=== PATIENT | female | born 1945 | race Caucasian/White ===

== ENCOUNTER 2016-09-05 10:24 | Emergency (ER) | payer OTHER, MEDICARE ==
[~2016-09-05 10:24] MED LIST: AMPH25CA3 PO
[2016-09-05 10:29] VITALS: BP 160/96; PULSE 90; RESP 20; O2SAT 98
--- NOTE | 2016-09-05 10:35 | ED.REPORT ---
HPI-General Illness Date of Service Sep 05, 2016 ED Provider: Dr. Bustillos Pt is a 71 y/o female w/ a hx of bronchitis, PE presenting to the ED c/o brown productive cough for 8 days. Pt c/o associated nasal congestion, rhinorrhea, mild SOB. Pt denies fever, chills, N/V/D. Her cough has been causing her discomfort throughout the day and has caused her decreased sleep. She has never smoked. There is no history of respiratory disease. She denies immobilization, lower extremity swelling or pain. She has a history of PE 3 years ago which was caused by immobilization of her leg secondary to injury. This presentation is not similar to her prior presentation of PE. Nursing Notes Stated Complaint: COLD SYMPTOMS Chief Complaint: FLU/Cold Symptoms Nursing Notes Reviewed: Yes Allergies: Coded Allergies: No Known Allergies (Verified Allergy, Unknown, 09/05/16) Scheduled Mixed Amphet-Expunged Drug, Do Not Renew! (Mixed Amphet-Expunged Drug, Do Not Renew!) 25 Mg Cap.sr.24h 30 MG PO DAILY Scheduled PRN Benzonatate (Tessalon Perle) 100 Mg Capsule 100 MG PO TID PRN PRN For Cough Guaifenesin/Codeine Phosphate (Cheratussin AC Syrup) 118 Ml Liquid 5 ML PO BID PRN PRN For Cough General Time Seen by MD: 10:35 Chief Complaint Cough Hx Obtained From: Patient Arrived By: Walk-in Sudden in Onset?: No Onset Occurred: More than a week ago... Symptom Duration: Since onset Severity: Current: No pain currently Severity: Maximum: No pain Similar Sx Previous: No Past Medical History Past Medical History Notes: history of kidney stones Past Medical History Bronchitis PE 3 years ago after an injury which caused leg immobilization Past Surgical History shoulder surgery Smoking History Former Smoker Social History Alcohol Use: "Social" Other Social History: Good social support Ambulatory Status Independent Review of Systems Full Review of Systems Constitutional: Denies: Chills, Fever Respiratory: Reports: Prod cough, brown, Shortness of breath GI: Denies: Diarrhea, Nausea, Vomiting Complete sys rev & neg: except as marked. Physical Exam Vital Signs Vital Signs Date Time Temp Pulse Resp B/P Pulse Ox O2 Delivery O2 Flow Rate FiO2 09/05/16 11:51 36.2 85 20 166/95 95 Room Air 09/05/16 10:29 36 90 20 160/96 98 Room Air Initial VS: Reviewed, Vital signs abnormal Head / Eyes: Atraumatic, Normocephalic, PERRL ENT: Mucous membranes moist, Conjunctiva normal, No scleral icterus Neck: Supple, Full range of motion Cardiovascular: Regular rate & rhythm, Heart sounds normal, Intact distal pulses Abdomen / GI: Soft, Non-tender Extremities: Vascular intact, Neuro intact, No swelling, No tenderness Skin: Warm, Dry, No cyanosis Neurologic: Alert, Oriented, Nonfocal Psychiatric: Mood/affect normal, Behavior normal, Normal thought content Respiratory / Chest: Atraumatic, Breath sounds = bilat, No respiratory distress , No wheezing, No retractions, No stridor, No chest tenderness, No chest wall deformity, No crepitus Slilghtly coarse throughout Good air movement Interpretation & Diagnostics X-Ray Chest Interpretation Chest Xray Interpretation: IMPRESSION: No acute cardiopulmonary disease process. Dictated by: Lisa Mccullough MD, PhD on 09/05/2016 at 11:16 Approved by: Lisa Mccullough MD, PhD on 09/05/2016 at 11:17 View: Portable, AP & lat Interpretation / Wet Read by: Interpret - Radiologist Re-Eval/Medical Decision Med Decision/Clinical Course Pt is a 71 y/o female w/ a hx of bronchitis, PE presenting to the ED c/o brown productive cough for 8 days. Pt c/o associated nasal congestion, rhinorrhea, mild SOB. Here in the emergency department the patient is afebrile w/ stable vital signs and in no apparent distress. CXR: Obtained, reviewed and interpreted by myself shows no evidence of acute infiltrates, effusions or pneumothorax. Cardiac and mediastinal silhouette normal. No bony or soft tissue abnormalities. History and examination overwhelmingly convincing for bronchitis in the setting of recent upper respiratory infection and now chronic cough. No evidence of bacterial pneumonia. Presentation on convincing for pulmonary embolus and causes her history and examination. No signs or symptoms to suggest acute coronary syndrome. I do not feel that further workup is indicated. Patient was treated with albuterol inhaler/spacer and seemed to respond somewhat to proper dilators. She has been prescribed Tessalon for cough and codeine/guaifenasin cough syrup for use at night as needed. She will follow up with her primary care physician in the next couple of days. Follow- up and return precautions were reviewed in detail and the patient verbalized understanding and agreeable with the plan. She was discharged in good condition. Time of Eval: 11:24 Re-Evaluation/Progress Note: Pt rechecked. Informed pt of plan for treatment. Pt understands and agrees with plan for treatment. F/U instructions and RTER warnings given. All questions addressed. Counseled Regarding: Diagnosis, Need for follow-up, When/why to return to ED Discharge & Departure Primary Impression: Bronchitis Additional Impressions: Cough Shortness of breath Disposition: Home Discharge Condition All VS Reviewed: Yes Condition: Stable Patient Instructions: Acute Bronchitis (ED) Additional Instructions: Thank you for seeking care at the emergency room. It is difficult for us to make definitive diagnoses in the ED but we believe that you are experiencing bronchitis. Our primary goal today in the ED was to evaluate you for any life-threatening conditions. Your evaluation was reassuring. Your chest x-ray and Influenza screen was negative. You will be discharged with a prescription for Tessalon Perles to be taken during the day for cough. Codeine guaifenesin for use at night. Albuterol inhaler for use if you feel short of breath. You should follow-up with your primary doctor in the next week. You should return to the ED immediately if you develop high fevers, vomiting, worsening shortness of breath, lightheadedness, weakness or any other concerning signs or symptoms. Thank you for letting us partake in your care today. Referrals: Skip Rosado MD (PCP) Scribe Attestation Portions of this note were transcribed by Jono Rudd. I, Dr. Bustillos personally performed the history, physical exam and medical decision-making; I reviewed and confirmed the accuracy of the information in the transcribed note. Signed by Manish Denny, 09/05/16 [id number] copies to: Skip Rosado MD, Beck O MD Sep 05, 2016 10:35 JONO RUDD Sep 05, 2016 11:29
--- NOTE | 2016-09-05 11:18 | DRSVH ---
PROCEDURE: X-RAY CHEST, TWO VIEWS ([id number]) INDICATIONS: cough TECHNIQUE: 2 views of the chest were acquired. COMPARISON: [facility], CR, XR CHEST 2VW, 11/11/2015, 21:22. FINDINGS: Surgical changes and devices: None. Lungs and pleura: No pleural effusions or pneumothorax. Lungs are clear. Mediastinum: Mediastinal contours are normal. Heart size is normal. Bones and chest wall: No suspicious bony abnormalities. Soft tissues appear unremarkable. IMPRESSION: No acute cardiopulmonary disease process. Dictated by: Lisa Mccullough MD, PhD on 09/05/2016 at 11:16 Approved by: Lisa Mccullough MD, PhD on 09/05/2016 at 11:17
[2016-09-05] MEDS ORDERED: GUAI118L13 PO (11:28)
[2016-09-05] MEDS ORDERED: BENZ-12 PO (11:28)
[2016-09-05] MEDS ORDERED: Albuterol HFA 60 Puff 8 Gm Inhaler INHALATION PRN (11:30)
[2016-09-05 11:51] VITALS: BP 166/95; PULSE 85; RESP 20; O2SAT 95
== END 2016-09-05 11:51 | disposition home or self-care (01) ==
LOC: SED 10:24
DX: J40 Bronchitis, not specified as acute or chronic (principal); R05 Cough; R06.02 Shortness of breath; Z87.891 Personal history of nicotine dependence

== ENCOUNTER 2016-11-15 18:33 | Emergency (ER) | payer OTHER, MEDICARE ==
[~2016-11-15] VITALS: Ht 152.4 cm; Wt 69.5 kg
[~2016-11-15 18:33] MED LIST changes: +BENZ-12 PO; +GUAI118L13 PO
[2016-11-15 18:44] VITALS: BP 184/91; PULSE 97; RESP 16; O2SAT 97
--- NOTE | 2016-11-15 19:44 | DRSVH ---
PROCEDURE: X-RAY RIGHT FOREARM, TWO VIEWS ([id number]) INDICATIONS: INJURY TECHNIQUE: 2 views of the forearm were acquired. COMPARISON: None. FINDINGS: Bones: No fractures or dislocations. No suspicious bony lesions. Soft tissues: No suspicious soft tissue calcifications but there is a focal soft tissue prominence a t the mid forearm level, dorsally, likely reflecting hematoma in this setting of recent traumatic inj ury. IMPRESSION: Contour bulge at the mid forearm level exactly correlated with the area of current clini gela concern, most likely a hematoma in this clinical circumstance. No underlying fracture or foreign body is seen. Dictated by: Shai Alonzo M.D. on 11/15/2016 at 19:41 Approved by: Shai Alonzo M.D. on 11/15/2016 at 19:43
--- NOTE | 2016-11-15 19:49 | ED.REPORT ---
HPI-Extremity Problem Upper Date of Service Nov 15, 2016 ED Provider: Bam Bustillos MD The patient is a 71 year old female who presents to the emergency department complaining of swelling to her right forearm. The patient had a ground level fall last week and injured her right arm. She was walking, tripped, and hit her forearm on a rock. She did not hit her head or lose consciousness. The swelling has improved since onset but has not resolved. She denies any other injuries or traumas. She is not taking any blood thinners. Nursing Notes Stated Complaint: ARM Chief Complaint: Extremity Trauma Nursing Notes Reviewed: Yes Allergies: Coded Allergies: No Known Allergies (Verified Allergy, Unknown, 09/05/16) Scheduled Mixed Amphet-Expunged Drug, Do Not Renew! (Mixed Amphet-Expunged Drug, Do Not Renew!) 25 Mg Cap.sr.24h 30 MG PO DAILY Scheduled PRN Benzonatate (Tessalon Perle) 100 Mg Capsule 100 MG PO TID PRN PRN For Cough Guaifenesin/Codeine Phosphate (Cheratussin AC Syrup) 118 Ml Liquid 5 ML PO BID PRN PRN For Cough General Time Seen by MD: 19:48 Chief Complaint Arm injury right Hx Obtained From: Patient Arrived By: Walk-in Onset Occurred: 1 week ago Symptom Duration: Since onset Location: : Arm right Quality: Painful Severity: Current: Mild Severity: Maximum: Mild Recent Healthcare: No recent doctor visit, No recent hospitalization Similar Sx Previous: No Past Medical History Past Medical History Bronchitis PE 3 years ago after an injury which caused leg immobilization Hx of kidney stones Past Surgical History Shoulder surgery Family History Noncontributory Smoking History Former Smoker Social History Alcohol Use: "Social" Other Social History: Good social support, Local resident Ambulatory Status Independent Review of Systems Musculoskeletal: Reports: Extremity pain Skin: Reports Swelling Complete sys rev & neg: except as marked. Physical Exam Initial Vital Signs Vital Signs (First) Date Time Temp Pulse Resp B/P Pulse Ox O2 Delivery O2 Flow Rate FiO2 11/15/16 18:44 36.5 97 16 184/91 97 Room Air Initial VS: Reviewed Head / Eyes: Atraumatic, Normocephalic, PERRL ENT: Mucous membranes moist, Conjunctiva normal, No scleral icterus Neck: Supple, Non-tender, Full range of motion Respiratory: Breath sounds normal, Clear to auscultation, No respiratory distress Cardiovascular: Regular rate & rhythm, Heart sounds normal, Intact distal pulses Abdomen / GI: Soft, Non-tender, No guarding, No rebound, No distention Lower Extremities: Vascular intact, Neuro intact, No swelling, No tenderness Skin: Warm, Dry, No cyanosis Neurologic: Alert, Oriented, Nonfocal Psychiatric: Mood/affect normal, Behavior normal, Normal thought content General/Constitutional: Awake, Alert, Cooperative Upper Extremity / MS: Neurologic intact, Vascular intact About the ulnar aspect of her right mid forearm there is a 3x3 cm fluctuant hematoma. There is no redness, warmth, or evidence of abscess or cellulitis. Skin is intact. Good radial pulses. Good capillary refill. Interpretation & Diagnostics X-Ray Interpretation Xray Interpretation: IMPRESSION: Contour bulge at the mid forearm level exactly correlated with the area of current clinical concern, most likely a hematoma in this clinical circumstance. No underlying fracture or foreign body is seen. Dictated by: Shai Alonzo M.D. on 11/15/2016 at 19:41 X-Ray Ordered: Radius ulna right Interpretation / Wet Read by: Interpret - Radiologist Procedures Subungual Hematoma Evacuation Subungual Hematoma Evacuation: HEMATOMA EVACUATION: The hematoma is located to her right mid forearm. Removed about 3 cc. Time: 20:04 Procedure Performed by: ED physician Consent / Setup / Site Prep: Consent from patient, Time-out performed, Hand hygiene observed Preparation: Hibiclens - Chlorhexidine Trephination: Needle trephination, Multiple holes, Hematoma partial evacuate Post-Procedure / Complications: Antibiotic oint applied, Dressing applied ( pressure dressing), No complications, Condition improved Re-Eval/Medical Decision Med Decision/Clinical Course The patient is a 71 year old female who presents to the emergency department complaining of swelling to her right forearm. The patient had a ground level fall last week and injured her right arm. She was walking, tripped, and hit her forearm on a rock. She did not hit her head or lose consciousness. The swelling has improved since onset but has not resolved. She denies any other injuries or traumas. She is not taking any blood thinners. Here in the emergency room she is afebrile stable vital signs. She is neurovascularly intact in the affected extremity. There is no evidence of fracture or dislocation. There is a fluctuant/firm hematoma about her forearm without any evidence of abscess or cellulitis. Right forearm x-ray: Contour bulge at the mid forearm level exactly correlated with the area of current clinical concern, most likely a hematoma in this clinical circumstance. No underlying fracture or foreign body is seen. Discussed this with patient and she opted to proceed with plan to attempt aspiration of hematoma. This was performed as above and I was able to aspirate several milliliters of dark bloody material that was nonpurulent though much of her hematoma remained. She will apply pressure dressing and ice packs. Return for any signs of infection. Prior to discharge follow-up and return precautions were reviewed in detail with the patient who verbalized understanding and agreement with the plan. The patient was discharged in stable condition. Source of Hx: Old records Re-Evaluation/Progress : Time of Eval: 20:10 Re-Evaluation/Progress Note: Discussed plan for discharge. All questions were addressed. Counseled Regarding: Diagnosis, Need for follow-up, When/why to return to ED Discharge & Departure Impression: Primary Impression: Hematoma Additional Impressions: Traumatic hematoma of forearm Encounter type: initial encounter Laterality: right Qualified Code: S50.11XA - Contusion of right forearm, initial encounter Forearm pain Laterality: right Qualified Code: M79.631 - Pain in right forearm Disposition: Home Discharge Condition All VS Reviewed: Yes Condition: Stable Additional Instructions: Thank you for seeking care at the emergency room. It is difficult for us to make definitive diagnoses in the ED but we believe that you are experiencing a hematoma. We aspirated your hematoma today. Please keep pressure dressings on the area so that it does not really accumulate. Our primary goal today in the ED was to evaluate you for any life-threatening conditions. Your evaluation was reassuring. You may apply ice packs and take [id number] Tylenol or ibuprofen for pain. You should follow-up with your primary doctor in the next week. You should return to the ED immediately if you develop increased swelling, redness, warmth, numbness, tingling, fevers, vomiting, cough, shortness of breath, chest pain, lightheadedness, weakness or any other concerning signs or symptoms. Thank you for letting us partake in your care today. Referrals: Skip Rosado MD (PCP) Scribe Attestation Portions of this note were transcribed by Kathe Hayes. Dr. Tressa Oakes personally performed the history, physical exam and medical decision-making; I reviewed and confirmed the accuracy of the information in the transcribed note. Signed by: Manish Garcia, 11/15/2016 at 2020. copies to: Skip Rosado MD, Beck O MD Nov 15, 2016 19:49 Kathe Hayes Nov 15, 2016 19:54
[2016-11-15] MEDS ORDERED: Lidocaine 1% 50 mL Inj NERVEBLOCK ONE (19:55)
[2016-11-15 20:22] VITALS: BP 160/86; PULSE 90; RESP 16; O2SAT 98
== END 2016-11-15 20:23 | disposition home or self-care (01) ==
LOC: SED 18:33
DX: S50.11XA Contusion of right forearm, initial encounter (principal); M79.631 Pain in right forearm; W01.198A Fall on same level from slipping, tripping and stumbling with subsequent striking against other object, initial encounter; Y93.01 Activity, walking, marching and hiking; Y92.9 Unspecified place or not applicable; Y99.8 Other external cause status; Z87.891 Personal history of nicotine dependence; Z86.711 Personal history of pulmonary embolism; Z79.899 Other long term (current) drug therapy